=== PATIENT | male | born 1945 | race Caucasian/White ===

== ENCOUNTER → 2018-12-07 | Outpatient (CLI) | payer MEDICARE | LOC: OD 11:56 | PROVIDERS: ATTEND Urology | DX: Z01.818 Encounter for other preprocedural examination (principal) | CPT/HCPCS: 36415; 86850; 86900; 86901 ==

== ENCOUNTER 2019-04-24 05:18 | Emergency (ER) | payer MEDICARE ==
[2019-04-24 06:19] LABS: HEMATOCRIT 30.2 % (37.9-51.0); HEMOGLOBIN 10.2 g/dL (13.5-17.0); MEAN CORPUSCULAR HEMOGLOBIN 31.9 pg (27.0-33.4); MEAN CORPUSCULAR HGB CONC 33.7 g/dL (32.0-36.0); MEAN CORPUSCULAR VOLUME 95 fl (80-97); PLATELET COUNT 285 10^3/uL (150-450); RED BLOOD COUNT 3.18 10^6/uL (4.35-5.55); RED CELL DISTRIBUTION WIDTH 20.5 % (11.5-14.0); WHITE BLOOD COUNT 15.1 10^3/uL (4.0-10.5)
[2019-04-24 06:23] LABS: ALANINE AMINOTRANSFERASE 24 U/L (21-72); ALBUMIN 3.6 g/dL (3.5-5.0); ALKALINE PHOSPHATASE 74 U/L (38-126); ANION GAP 10 (5-19); ASPARTATE AMINO TRANSFERASE 25 U/L (17-59); BILIRUBIN,DIRECT 0.2 mg/dL (0.0-0.4); BILIRUBIN,TOTAL 0.2 mg/dL (0.2-1.3); BLOOD UREA NITROGEN 23 mg/dL (7-20); CARBON DIOXIDE 18 mmol/L (22-30); CHLORIDE 104 mmol/L (98-107); GLUCOSE 127 mg/dL (75-110); POTASSIUM 5.5 mmol/L (3.6-5.0); TOTAL PROTEIN 6.3 g/dL (6.3-8.2)
[2019-04-24 06:33] LABS: ABSOLUTE LYMPHOCYTES# (MANUAL) 0.9 10^3/uL (0.5-4.7); ABSOLUTE MONOCYTES # (MANUAL) 0.3 10^3/uL (0.1-1.4); ABSOLUTE NEUTROPHILS# (MANUAL) 13.9 10^3/uL (1.7-8.2); BASOPHILS % (MANUAL) 0 % (0-2); EOSINOPHILS % (MANUAL) 0 % (0-6); LYMPHOCYTES % (MANUAL) 6 % (13-45); MONOCYTES % (MANUAL) 2 % (3-13); SEGMENTED NEUTROPHILS % (MAN) 92 % (42-78); TOTAL CELLS COUNTED 100
[2019-04-24 06:35] LABS: ANISOCYTOSIS 1+; BURR CELLS SLIGHT; PLATELET COMMENT ADEQUATE; TARGET CELLS SLIGHT
[2019-04-24] MEDS ORDERED: FENTANYL CITRATE INJ/PF 100 MCG/2 ML AMPUL IV PRN (06:46)
[2019-04-24 06:51] LABS: APPEARANCE,URINE CLOUDY; BILIRUBIN,URINE NEGATIVE (NEGATIVE); COLOR,URINE YELLOW; GLUCOSE, URINE NEGATIVE (NEGATIVE); KETONES,URINE NEGATIVE (NEGATIVE); LEUKOCYTE ESTERASE,URINE NEGATIVE (NEGATIVE); NITRITE,URINE NEGATIVE (NEGATIVE); PROTEIN,URINE 30 mg/dL (NEGATIVE); UROBILINOGEN,URINE NEGATIVE mg/dL (<2.0)
--- NOTE | 2019-04-24 07:01 | ER Document Report ---
ED GI/ - General Mode of Arrival: Ambulatory Information source: Patient TRAVEL OUTSIDE OF THE [place] IN LAST 30 DAYS: No <MARLENY BONNER - Last Filed: 04/24/19 09:13> <DAVID PHELPS - Last Filed: 04/24/19 10:32> - General Chief Complaint: Nausea/Vomiting Stated Complaint: NAUSEA AND VOMITING Time Seen by Provider: 04/24/19 05:34 Notes: Patient is a 73-year-old male presented to the emergency department chief complaint of nausea vomiting that began at 11 PM. No fever. Reports he has vomited at least 8 times. Patient reports mid abdominal pain and states he has been having irregular bowel movements. He states he has been taking stool softeners as well as antidiarrheals. He reports history of bladder and prostate cancer, states that he has a urostomy. His last chemotherapy was in November. He states he is seen by an oncologist with the [facility] group, he does not recall his name at this time. (MARLENY BONNER) - Related Data Allergies/Adverse Reactions: codeine Allergy (Verified 03/09/19 19:49) Ffljmvl-Xwt-Kha Reductase Inhibitor Adverse Reaction (Intermediate, Verified 03/09/19 18:17) weakness Past Medical History - General Information source: Patient - Social History Smoking Status: Current Every Day Smoker Chew tobacco use (# tins/day): No Frequency of alcohol use: Occasional Drug Abuse: None Family History: Reviewed & Not Pertinent Patient has suicidal ideation: No Patient has homicidal ideation: No - Past Medical History Cardiac Medical History: Reports: Hx Hypercholesterolemia, Hx Hypertension Pulmonary Medical History: Denies: Hx COPD, Hx Respiratory Failure Neurological Medical History: Reports: Hx Cerebrovascular Accident. Denies: Hx Seizures Endocrine Medical History: Denies: Hx Diabetes Mellitus Type 2 Renal/ Medical History: Denies: Hx Peritoneal Dialysis GI Medical History: Reports: Hx Ulcer. Denies: Hx Cirrhosis, Hx Diverticulitis, Hx Hiatal Hernia Musculoskeletal Medical History: Reports Hx Arthritis - Occasional joint pain Skin Medical History: Denies Hx Eczema, Denies Hx Psoriasis Past Surgical History: Reports: Hx Abdominal Surgery - Vagotomy-antrectomy in his 20s for ulcers., Hx Genitourinary Surgery - bladder surgery for cancer, Hx Urinary Tract Surgery - Several cystoscopic procedures for bladder cancer., Other - Antrectomy and vagotomy. Required revision 1 month later. - Immunizations Hx Diphtheria, Pertussis, Tetanus Vaccination: - unk Hx Pneumococcal Vaccination: 11/23/12 <MARLENY BONNER - Last Filed: 04/24/19 09:13> Review of Systems - Review of Systems Constitutional: No symptoms reported EENT: No symptoms reported Cardiovascular: No symptoms reported Respiratory: No symptoms reported Gastrointestinal: Abdominal pain, Nausea, Vomiting Genitourinary: No symptoms reported Male Genitourinary: No symptoms reported Musculoskeletal: No symptoms reported Skin: No symptoms reported Hematologic/Lymphatic: No symptoms reported Neurological/Psychological: No symptoms reported <MARLENY BONNER - Last Filed: 04/24/19 09:13> Physical Exam <MARLENY BONNER - Last Filed: 04/24/19 09:13> - Notes Notes: PHYSICAL EXAMINATION: GENERAL: Well-appearing, well-nourished and in no acute distress. HEAD: Atraumatic, normocephalic. EYES: Pupils equal round and reactive to light, extraocular movements intact, sclera anicteric, conjunctiva are normal. ENT: Nares patent, oropharynx clear without exudates. Moist mucous membranes. NECK: Normal range of motion, supple without lymphadenopathy LUNGS: Breath sounds clear to auscultation bilaterally and equal. No wheezes rales or rhonchi. HEART: Regular rate and rhythm without murmurs ABDOMEN: Soft, nontender, nondistended abdomen. No guarding, no rebound. No masses appreciated. Urostomy tube placed to right side of abdomen. Musculoskeletal: Normal range of motion, no pitting or edema. No cyanosis. NEUROLOGICAL: Cranial nerves grossly intact. Normal speech, normal gait. Normal sensory, motor exams PSYCH: Normal mood, normal affect. SKIN: Warm, Dry, normal turgor, no rashes or lesions noted. (MARLENY BONNER) Course - Laboratory Result Diagrams: 04/24/19 05:48 04/24/19 05:48 <MARLENY BONNER - Last Filed: 04/24/19 09:13> - Laboratory Result Diagrams: 04/24/19 05:48 04/24/19 05:48 <DAVID PHELPS - Last Filed: 04/24/19 10:32> - Re-evaluation Re-evalutation: Patient has leukocytosis of 15,000. Labs otherwise unremarkable. CT of the abd omen and pelvis with IV contrast is unremarkable. This was reviewed by Dr. Rey. We will try to give patient additional IV pain medication to make sure his pain is under control prior to discharge home. He has not had any episodes of vomiting while in the department. Handoff given to Daisy Phelps. Patient is typed of her discharge home with pain medications and may go home if he does not have any further episodes of vomiting and if his pain is resolved. Close follow-up with PCP. (MARLENY BONNER) 04/24/19 10:31 Accepted patient from Marleny Bonner, [facility]. I talked to patient and he states that he is concerned because he is very parched. He said the Zofran ODT he received last night caused him to vomit. I have ordered Zofran 4 mg IV and was given permission to access his port. After administration of Zofran we will do a p.o. challenge to ensure that he can tolerate fluids and leonel crackers. At that time if he does tolerate p.o. intake he will be okay to go home. (DAVID PHELPS) - Laboratory Laboratory results interpreted by me: 04/24/19 04/24/19 04/24/19 05:48 05:48 06:30 WBC 15.1 H RBC 3.18 L Hgb 10.2 L Hct 30.2 L RDW 20.5 H Seg Neuts % (Manual) 92 H Lymphocytes % (Manual) 6 L Monocytes % (Manual) 2 L Abs Neuts (Manual) 13.9 H Sodium 132.0 L Potassium 5.5 H Carbon Dioxide 18 L BUN 23 H Glucose 127 H Urine Protein 30 H Urine Blood LARGE H Discharge <MARLENY BONNER - Last Filed: 04/24/19 09:13> <DAVID PHELPS - Last Filed: 04/24/19 10:32> - Discharge Clinical Impression: Abdominal pain Qualifiers: Abdominal location: generalized Qualified Code(s): R10.84 - Generalized abdominal pain Vomiting Qualifiers: Vomiting type: unspecified Vomiting Intractability: unspecified Nausea presence: with nausea Qualified Code(s): R11.2 - Nausea with vomiting, unspecified Condition: Stable Disposition: HOME, SELF-CARE Additional Instructions: Your work-up today here in the emergency department was reassuring. Please continue to take Tylenol and/or ibuprofen for your pain. If the pain becomes severe you may take the oral morphine. Use the Zofran that you have at home as prescribed to help with nausea. Please call your primary care provider and oncologist Thursday morning to schedule a follow-up appointment. Please return to the emergency department with any new or worsening symptoms to include persistent vomiting, development of fever or worsening abdominal pain. Prescriptions: Morphine Sulfate [Morphine Ir 15 Mg Tablet] 15 mg PO Q6H PRN #12 tablet PRN Reason:
--- NOTE | 2019-04-24 07:46 | RADIOLOGY REPORT (SQ) ---
EXAM DESCRIPTION: CT ABDOMEN PELVIS WITH IV CONTRAST COMPLETED DATE/TME: 04/24/2019 06:47 CLINICAL HISTORY: Diffuse abd pain, leukocytosis, vomiting COMPARISON: 03/10/2019 TECHNIQUE: CT of the abdomen and pelvis performed following IV administration of 81 mL of Omnipaque 350. DLP: 779.77 mGycm FINDINGS: Lung Bases: Mild bilateral dependent atelectasis. Bones: Degenerative change of the spine. Abdomen: Liver: The liver has normal size and density. No intrahepatic mass or biliary dilatation. Gallbladder: No calcified gallstones. Spleen, Pancreas, and Adrenal Glands: Calcified splenic granulomas. Pancreas and adrenal glands are unremarkable. Kidneys: Bilateral hydronephrosis again identified. Vasculature: Aortoiliac atherosclerosis. IVC is unremarkable. The portal vein is patent. The proximal visceral and renal arteries are patent. Stomach: The stomach and duodenum have normal course. Other: No free intraperitoneal air. Small amount of free fluid. Pelvis: Bladder: Prior cystectomy. Bowel: Right lower quadrant ileostomy. Dilated loops of small bowel in the mid abdomen likely representing the ileal conduit. The remaining small bowel is decompressed. Moderate amount of stool in the colon. Appendix: Not identified. Pelvis: Prostate is not enlarged. IMPRESSION: 1. Redemonstrated dilated loops of bowel in the central abdomen thought to represent a dilated ileal conduit. Small bowel obstruction is considered less likely. Loopogram of the Ileal conduit could be beneficial. 2. Persistent bilateral hydronephrosis is stable. 3. Small amount of free fluid. This exam was performed according to our departmental dose-optimization program, which includes automated exposure control, adjustment of the mA and/or kV according to patient size and/or use of iterative reconstruction technique.
[2019-04-24] MEDS ORDERED: NORMAL SALINE 1000 ML 1,000 ML IV ONE (08:15)
[2019-04-24] MEDS ORDERED: FENTANYL CITRATE INJ/PF 100 MCG/2 ML AMPUL IV ONE (08:37)
[2019-04-24] MEDS ORDERED: ONDANSETRON HCL INJ/PF 4 MG/2 ML SDV IV ONE ×2 (08:38→10:30)
[2019-04-24 13:37] VITALS: BP 130/68
== END 2019-04-24 13:38 | disposition home or self-care (01) ==
LOC: ER 05:18
DX: R11.2 Nausea with vomiting, unspecified (principal); R10.84 Generalized abdominal pain; D72.829 Elevated white blood cell count, unspecified; R19.4 Change in bowel habit; F17.200 Nicotine dependence, unspecified, uncomplicated; I10 Essential (primary) hypertension; Z93.6 Other artificial openings of urinary tract status; Z85.46 Personal history of malignant neoplasm of prostate; Z85.51 Personal history of malignant neoplasm of bladder; Z92.21 Personal history of antineoplastic chemotherapy; Z88.5 Allergy status to narcotic agent
CPT/HCPCS: 36591; 96376; 99284; 96361; 96374; 96375; 36415; 85025; 80053; 81001; 74177; J3010; J2405; J7030

== ENCOUNTER 2019-05-06 20:32 | Emergency (ER) | payer MEDICARE ==
[2019-05-06] MEDS ORDERED: ONDANSETRON HCL INJ/PF 4 MG/2 ML SDV IV ONE (21:20)
[2019-05-06] MEDS ORDERED: MORPHINE SULFATE 10 MG/ML INJ IV PRN (21:20)
[2019-05-06] MEDS ORDERED: RINGERS SOLUTION,LACTATED 500 ML IV ONE (21:21)
[2019-05-06] MEDS ORDERED: FENTANYL CITRATE INJ/PF 100 MCG/2 ML AMPUL IV PRN ×2 (21:31→23:02)
--- NOTE | 2019-05-06 22:06 | ER Document Report ---
ED General - General Chief Complaint: Flank Pain Stated Complaint: ABDOMINAL PAIN Time Seen by Provider: 05/06/19 21:20 Notes: Patient is a 73-year-old male with past medical history of bladder cancer status post cystectomy, prostatectomy, diverting ileal conduit with bilateral ureter attachment who presents with 12 hours of progressive worsening abdominal pain, nausea, vomiting and decreased output into the urostomy bag. Patient states th at symptoms started earlier this morning, have been progressively worsening since that time. Describes as diffuse, severe, cramping abdominal pain as well as bilateral flank pain. No obvious exacerbating or relieving factors. Denies any history of similar symptoms in the past. Contacted his primary urologist regarding today's concerns. Is not currently on chemotherapy. TRAVEL OUTSIDE OF THE [place] IN LAST 30 DAYS: No - Related Data Allergies/Adverse Reactions: codeine Allergy (Verified 03/09/19 19:49) Ikjequu-Jav-Vmf Reductase Inhibitor Adverse Reaction (Intermediate, Verified 03/09/19 18:17) weakness Past Medical History - General Information source: Patient - Social History Smoking Status: Current Every Day Smoker Frequency of alcohol use: None Drug Abuse: None Family History: Reviewed & Not Pertinent Patient has suicidal ideation: No Patient has homicidal ideation: No - Past Medical History Cardiac Medical History: Reports: Hx Hypercholesterolemia, Hx Hypertension Pulmonary Medical History: Denies: Hx COPD, Hx Respiratory Failure Neurological Medical History: Reports: Hx Cerebrovascular Accident. Denies: Hx Seizures Endocrine Medical History: Denies: Hx Diabetes Mellitus Type 2 Renal/ Medical History: Denies: Hx Peritoneal Dialysis GI Medical History: Reports: Hx Ulcer. Denies: Hx Cirrhosis, Hx Diverticulitis, Hx Hiatal Hernia Musculoskeletal Medical History: Reports Hx Arthritis - Occasional joint pain Skin Medical History: Denies Hx Eczema, Denies Hx Psoriasis Past Surgical History: Reports: Hx Abdominal Surgery - Vagotomy-antrectomy in his 20s for ulcers., Hx Genitourinary Surgery - bladder surgery for cancer, Hx Urinary Tract Surgery - Several cystoscopic procedures for bladder cancer., Other - Antrectomy and vagotomy. Required revision 1 month later. - Immunizations Hx Diphtheria, Pertussis, Tetanus Vaccination: - unk Hx Pneumococcal Vaccination: 11/23/12 Review of Systems - Review of Systems Notes: Constitutional: Negative for fever. HENT: Negative for sore throat. Eyes: Negative for visual changes. Cardiovascular: Negative for chest pain. Respiratory: Negative for shortness of breath. Gastrointestinal: Positive for abdominal pain, vomiting Genitourinary: Positive for hematuria from urostomy bag Musculoskeletal: Negative for back pain. Skin: Negative for rash. Neurological: Negative for headaches, weakness or numbness. 10 point ROS negative except as marked above and in HPI. Physical Exam - Vital signs Vitals: Temp Pulse Resp BP Pulse Ox 97.6 F 82 20 171/75 H 100 05/06/19 20:38 05/06/19 20:38 05/06/19 20:38 05/06/19 20:38 05/06/19 20:38 Interpretation: Hypertensive Notes: PHYSICAL EXAMINATION: GENERAL: Ill in appearance, very uncomfortable HEAD: Atraumatic, normocephalic. EYES: Pupils equal round and reactive to light, extraocular movements intact, sclera anicteric, conjunctiva are normal. ENT: nares patent, oropharynx clear without exudates. Moderately dry mucous membranes. NECK: Normal range of motion, supple without lymphadenopathy LUNGS: Breath sounds clear to auscultation bilaterally and equal. No wheezes rales or rhonchi. HEART: Regular rate and rhythm without murmurs ABDOMEN: Soft, diffuse tenderness to palpation without localization. The urostomy stoma is dark red in color. Normoactive bowel sounds. No guarding, no rebound. No masses appreciated. EXTREMITIES: Normal range of motion, no pitting or edema. No cyanosis. NEUROLOGICAL: No focal neurological deficits. Moves all extremities spontaneously and on command. PSYCH: Normal mood, normal affect. SKIN: Warm, Dry, normal turgor, no rashes or lesions noted. Course - Re-evaluation Re-evalutation: 05/06/19 22:04 Patient presents with diffuse abdominal and flank pain with associated nausea and vomiting, has vomited while here in the emergency department. Has a history of cystectomy, prostatectomy, diverting ureters to an ileal conduit. Patient does have a pink-tinged type hematuria into the urostomy bag, states that there is been almost no output into the bag over the last 8 hours. Patient does appear somewhat pale, obviously uncomfortable. Was seen here on the second of this month under similar circumstances although is adamant he did this feels quite different sitting at that time he did not have pain like this nor did he have decreased urine output. Abdominal exam shows global tenderness to the areas of rebound or guarding. Labs, CT imaging of the abdomen pelvis pending. 0010-we have continued to have significant difficulty obtaining good pain control. Escalating doses of fentanyl have been unsuccessful. Patient has been started on hydromorphone. 05/07/19 01:34 I did speak to Dr. Patel after reviewing CT and lab results. Concern that there could be an obstruction. Dr. Patel advised inserting a digit into the urostomy which was completed at the bedside without any difficulty or pain on the patient's part. Purulent discharge was noted coming from the ostomy after removal of the digit. A Lal catheter was then inserted until it met significant resistance but there was no urine passage. I have contacted [facility] back and asked for guidance on what to do at this point 05/07/19 02:26 Patient has been accepted by Dr. Patel. Awaiting transport. Patient has been started on cefepime for empiric coverage of possible pyelonephritis 05/07/19 03:20 Patient reassessed prior to transport. Stable and appropriate for transfer. - Vital Signs Vital signs: Temp Pulse Resp BP Pulse Ox 98.1 F 82 29 H 177/98 H 94 05/07/19 03:15 05/06/19 20:38 05/07/19 03:12 05/07/19 03:12 05/07/19 03:12 - Laboratory Result Diagrams: 05/06/19 22:15 05/06/19 22:15 Laboratory results interpreted by me: 05/06/19 05/06/19 05/07/19 22:15 22:15 00:15 WBC 21.0 H RBC 3.18 L Hgb 10.2 L Hct 30.4 L RDW 19.7 H Seg Neuts % (Manual) 92 H Lymphocytes % (Manual) 3 L Monocytes % (Manual) 1 L Abs Neuts (Manual) 20.2 H Sodium 127.4 L Chloride 96 L BUN 23 H Total Protein 6.0 L Albumin 3.3 L Urine Protein >=500 H Urine Blood MODERATE H - Diagnostic Test Radiology reviewed: Reports reviewed Critical Care Note - Critical Care Note Total time excluding time spent on procedures (mins): 38 Comments: Critical care time spent obtaining history from patient or surrogate, discussions with consultants, development of treatment plan with patient or surrogate, evaluation of patient's response to treatment, examination of patient, ordering and performing treatments and interventions, ordering and review of laboratory studies, re-evaluation of patient's condition, ordering and review of radiographic studies and review of old charts Discharge - Discharge Clinical Impression: Bilateral hydronephrosis, Complication of urostomy Nausea and vomiting Qualifiers: Vomiting type: unspecified Vomiting Intractability: non-intractable Qualified Code(s): R11.2 - Nausea with vomiting, unspecified Leukocytosis Qualifiers: Leukocytosis type: unspecified Qualified Code(s): D72.829 - Elevated white blood cell count, unspecified Condition: Fair Disposition: [facility]
[2019-05-06 22:53] LABS: HEMATOCRIT 30.4 % (37.9-51.0); HEMOGLOBIN 10.2 g/dL (13.5-17.0); MEAN CORPUSCULAR HEMOGLOBIN 32.1 pg (27.0-33.4); MEAN CORPUSCULAR HGB CONC 33.5 g/dL (32.0-36.0); MEAN CORPUSCULAR VOLUME 96 fl (80-97); PLATELET COUNT 332 10^3/uL (150-450); RED BLOOD COUNT 3.18 10^6/uL (4.35-5.55); RED CELL DISTRIBUTION WIDTH 19.7 % (11.5-14.0)
[2019-05-06 23:02] LABS: ALANINE AMINOTRANSFERASE 25 U/L (21-72); ALBUMIN 3.3 g/dL (3.5-5.0); ALKALINE PHOSPHATASE 72 U/L (38-126); ANION GAP 8 (5-19); ASPARTATE AMINO TRANSFERASE 24 U/L (17-59); BILIRUBIN,DIRECT 0.3 mg/dL (0.0-0.4); BILIRUBIN,TOTAL 0.4 mg/dL (0.2-1.3); BLOOD UREA NITROGEN 23 mg/dL (7-20); CALCIUM 8.6 mg/dL (8.4-10.2); CARBON DIOXIDE 23 mmol/L (22-30); CHLORIDE 96 mmol/L (98-107); GLUCOSE 95 mg/dL (75-110); LIPASE 84.8 U/L (23-300); POTASSIUM 4.2 mmol/L (3.6-5.0); SODIUM 127.4 mmol/L (137-145)
[2019-05-06 23:09] LABS: ABSOLUTE LYMPHOCYTES# (MANUAL) 0.6 10^3/uL (0.5-4.7); ABSOLUTE MONOCYTES # (MANUAL) 0.2 10^3/uL (0.1-1.4); ABSOLUTE NEUTROPHILS# (MANUAL) 20.2 10^3/uL (1.7-8.2); BAND NEUTROPHILS % (MANUAL) 4 % (3-5); BASOPHILS % (MANUAL) 0 % (0-2); EOSINOPHILS % (MANUAL) 0 % (0-6); LYMPHOCYTES % (MANUAL) 3 % (13-45); MONOCYTES % (MANUAL) 1 % (3-13); PLATELET COMMENT ADEQUATE; SEGMENTED NEUTROPHILS % (MAN) 92 % (42-78); TOTAL CELLS COUNTED 100; TOXIC GRANULATION 1+; TOXIC VACUOLATION PRESENT
[2019-05-06 23:10] LABS: ANISOCYTOSIS 1+; HYPOCHROMASIA SLIGHT
[2019-05-06] MEDS ORDERED: RINGERS SOLUTION,LACTATED 1,000 ML IV ONE (23:28)
[2019-05-06] MEDS ORDERED: METOCLOPRAMIDE HCL INJ/PF 10 MG/2 ML SDV IV ONE (23:28)
[2019-05-06] MEDS ORDERED: METOCLOPRAMIDE HCL INJ/PF 10 MG/2 ML SDV ONE (23:29)
--- NOTE | 2019-05-07 00:08 | RADIOLOGY REPORT (SQ) ---
EXAM DESCRIPTION: CT ABDOMEN PELVIS WITH IV CONTRAST COMPLETED DATE/TME: 05/06/2019 21:20 CLINICAL HISTORY: 73 years Male bilateral flank pain, vomiting, elderly COMPARISON: 04/24/2019. TECHNIQUE: Contiguous axial images obtained through the abdomen and pelvis following IV contrast. Reformatted images obtained. This exam was performed according to our department optimization program which includes automated exposure control, adjustment of the mA and/or kv according to patient size and/or use of iterative reconstruction technique. FINDINGS: There are postsurgical changes in the upper abdomen. There is diffuse stranding in the abdomen and pelvis with free fluid. Subcutaneous edema is noted. Liver is unremarkable. Spleen and the visualized thickness of the pancreas appear within normal limits. No adrenal masses. There is moderate bilateral hydronephrosis, similar to the previous examination. However there is no evidence of contrast in the renal collecting system on the delayed images today. The ileal conduit remains significantly dilated. Possibility of narrowing at the level of the stoma is not excluded. The gallbladder is visualized. No aneurysmal dilatation of the aorta. Vascular calcification. No bowel obstruction. The appendix is not visualized. Moderate fecal material is present in the colon.. IMPRESSION: There is distention of the ileal conduit loop as well as moderate bilateral hydronephrosis and delayed nephrograms with perinephric edema. Findings may be related to obstruction or pyelonephritis. No contrast is seen in the collecting systems on the delayed images. There is diffuse stranding in the mesentery with a small amount of free fluid Large volume of fecal material in the colon which may reflect constipation No additional evidence of acute process.
[2019-05-07] MEDS: HYDROMORPHONE HCL INJ/PF 2 MG/ML AMPULE IV PRN ×2 (00:29→02:31)
[2019-05-07] MEDS ORDERED: CEFEPIME 2 GM/D5W RTU 2 GM/50 ML RTUPB IV ONE (00:50)
[2019-05-07 00:57] LABS: AMORPHOUS SEDIMENT,URINE TRACE /HPF; BILIRUBIN,URINE NEGATIVE (NEGATIVE); GLUCOSE, URINE NEGATIVE (NEGATIVE); KETONES,URINE NEGATIVE (NEGATIVE); LEUKOCYTE ESTERASE,URINE NEGATIVE (NEGATIVE); NITRITE,URINE NEGATIVE (NEGATIVE); PROTEIN,URINE >=500 mg/dL (NEGATIVE); URINE SPECIFIC GRAVITY 1.007; UROBILINOGEN,URINE NEGATIVE mg/dL (<2.0)
[2019-05-07 00:59] LABS: APPEARANCE,URINE TURBID; COLOR,URINE RED
[2019-05-07 03:14] VITALS: BP 177/98
== END 2019-05-07 03:24 | disposition short-term general hospital (02) ==
LOC: ER 20:32
DX: N99.528 Other complication of incontinent external stoma of urinary tract (principal); Y83.3 Surgical operation with formation of external stoma as the cause of abnormal reaction of the patient, or of later complication, without mention of misadventure at the time of the procedure; N13.30 Unspecified hydronephrosis; R31.0 Gross hematuria; D72.829 Elevated white blood cell count, unspecified; R11.2 Nausea with vomiting, unspecified; R10.84 Generalized abdominal pain; F17.200 Nicotine dependence, unspecified, uncomplicated; I10 Essential (primary) hypertension; Z85.51 Personal history of malignant neoplasm of bladder; Z90.6 Acquired absence of other parts of urinary tract; Z90.79 Acquired absence of other genital organ(s); Z88.5 Allergy status to narcotic agent
CPT/HCPCS: 96376; 99285; 96361; 96374; 96375; 36415; 87086; 83690; 85025; 87088; 80053; 81001; 87186; 74177; J3010; J2765; J1170; J2405; J7120; J0692